=== PATIENT | male | born 1930 | race Native Hawaiian/Other Pacific Islander ===

== ENCOUNTER 2017-07-20 12:53 | Outpatient (CLI) | payer OTHER ==
[2017-07-20 13:35] LABS: POTASSIUM 4.4 mmol/L (3.6-5.2)
== END 2017-07-20 19:22 | disposition home or self-care (01) ==
LOC: LAB 12:53
PROVIDERS: Internal Medicine Cardiovascular Disease
DX: I50.9 Heart failure, unspecified (principal); Z79.899 Other long term (current) drug therapy; Z51.81 Encounter for therapeutic drug level monitoring
CPT/HCPCS: 36415; 80048; 83880

== ENCOUNTER 2017-08-05 07:55 | Emergency (ER) | payer OTHER ==
[~2017-08-05] VITALS: Ht 175.3 cm; Wt 70.3 kg
[2017-08-05] MEDS ORDERED: PACERONE200 MG OR (08:51)
[2017-08-05] MEDS ORDERED: LIPITOR40 MG PO (08:51)
[2017-08-05] MEDS ORDERED: CARV3.12 PO (08:52)
[2017-08-05] MEDS ORDERED: ELIQUIS2.5 MG OR (08:53)
[2017-08-05] MEDS ORDERED: RAPAFLO8 M1 PO (08:53)
[2017-08-05] MEDS ORDERED: FURO40TA93 PO (08:54)
[2017-08-05 08:58] LABS: PLATELET COUNT 437 K/uL (142-355)
[2017-08-05 09:05] LABS: POTASSIUM 3.9 mmol/L (3.6-5.2); SODIUM 141 mmol/L (136-145)
[2017-08-05 16:35] VITALS: BP 123/53; TEMP 97.9
== END 2017-08-05 16:35 | disposition home or self-care (01) ==
LOC: ED 07:55
PROVIDERS: Emergency Medicine
DX: N39.0 Urinary tract infection, site not specified (principal); N30.00 Acute cystitis without hematuria; N13.39 Other hydronephrosis
CPT/HCPCS: 36415; 51702; 80053; 81000; 82550; 84484; 85027; 87077; 87086; 87088; 87186; 96365; 99284; J0696; Q9963

== ENCOUNTER 2017-10-26 12:28 | Outpatient (CLI) | payer OTHER ==
[~2017-10-26 12:28] MED LIST: CARV3.12 PO; ELIQUIS2.5 MG OR; FURO40TA93 PO; LIPITOR40 MG PO; PACERONE200 MG OR; RAPAFLO8 M1 PO
[2017-10-26 12:51] LABS: POTASSIUM 4.3 mmol/L (3.6-5.2)
== END 2017-10-26 18:13 | disposition home or self-care (01) ==
LOC: LABW 12:28
PROVIDERS: Internal Medicine Cardiovascular Disease
DX: Z79.899 Other long term (current) drug therapy (principal); Z51.81 Encounter for therapeutic drug level monitoring
CPT/HCPCS: 36415; 80048

== ENCOUNTER 2018-09-08 09:44 | Emergency (ER) | payer OTHER ==
[~2018-09-08] VITALS: Ht 175.3 cm; Wt 78.5 kg
[~2018-09-08 09:44] MED LIST changes: -PACERONE200 MG OR; +PACERONE200 MG PO
[2018-09-08 10:00] VITALS: TEMP 97.9
[2018-09-08 11:31] LABS: POTASSIUM 3.8 mmol/L (3.6-5.2)
[2018-09-08 11:46] LABS: PLATELET COUNT 946 K/uL (142-355)
[2018-09-08] MEDS ORDERED: [UNRECOGNIZED DRUG - OTHER] PO (18:50)
[2018-09-08] MEDS ORDERED: FURO40TA93 PO (18:50)
[2018-09-08] MEDS ORDERED: PRED FORTE1 % OPTH (18:54)
[2018-09-08] MEDS ORDERED: CENTRUM SILVER ULTR1 PO (18:55)
[2018-09-08] MEDS ORDERED: [UNRECOGNIZED DRUG - MIXTURE] PO (18:55)
[2018-09-08 20:30] VITALS: BP 127/70
== END 2018-09-08 20:45 | disposition short-term general hospital (02) ==
LOC: ED 09:44
PROVIDERS: Emergency Medicine
DX: I50.9 Heart failure, unspecified (principal); I25.2 Old myocardial infarction; R79.89 Other specified abnormal findings of blood chemistry
CPT/HCPCS: 36415; 80053; 82550; 83880; 84484; 85027; 93005; 96374; 99284; J1940

== ENCOUNTER 2018-09-08 20:49 | Outpatient (CLI) | payer OTHER ==
[~2018-09-08 20:49] MED LIST changes: +CENTRUM SILVER ULTR1 PO; +PRED FORTE1 % OPTH; +[UNRECOGNIZED DRUG - MIXTURE] PO; +[UNRECOGNIZED DRUG - OTHER] PO
== END 2018-09-08 21:57 | disposition short-term general hospital (02) ==
LOC: AMB 20:49
DX: I50.9 Heart failure, unspecified (principal); I25.2 Old myocardial infarction; R79.89 Other specified abnormal findings of blood chemistry
CPT/HCPCS: A0425; A0427

== ENCOUNTER 2018-09-16 05:59 | Emergency (ER) | payer OTHER ==
[~2018-09-16] VITALS: Ht 175.3 cm; Wt 78.5 kg
[2018-09-16 06:00] VITALS: BP 0/0
== END 2018-09-16 08:00 | disposition expired ==
LOC: ED 05:59
PROC: 5A12012 Performance of Cardiac Output, Single, Manual (ICD-10-PCS; principal; 2018-09-16)
DX: I46.9 Cardiac arrest, cause unspecified (principal)
CPT/HCPCS: 92950; 99281